=== PATIENT | male | born 1995 | race Caucasian/White ===

== ENCOUNTER 2020-03-29 10:50 | Emergency (ER) | payer OTHER, SELFPAY ==
[2020-03-29 10:54] VITALS: BP 140/81; PULSE 133; RESP 18; TEMP 36.6; O2SAT 98; BMI 24.4
--- NOTE | 2020-03-29 12:31 | ED_ITS ---
HPI - General Adult General Chief complaint: General Medical Stated complaint: hernia Time Seen by Provider: 03/29/20 12:31 Source: patient Mode of arrival: ambulatory Limitations: no limitations History of Present Illness HPI narrative: Tender area to the left upper thigh for the past several days. Onset (ago): day(s) Radiation: non-radiation Severity: mild Treatments prior to arrival: none Related Data Previous Rx's Medication Instructions Recorded cephalexin [Keflex] 500 mg PO Q8H 7 Days #21 cap 03/29/20 doxycycline monohydrate 100 mg PO BID 10 Days #20 cap 03/29/20 Allergies Allergy/AdvReac Type Severity Reaction Status Date / Time amoxicillin [AMOXICILLIN] Allergy Unknown HIVES Verified 03/29/20 10:51 Review of Systems Review of Systems: Constitutional: No Weight loss, No Fever, No Chills, No Night Sweats, No Fatigue, No Malaise ENT/Mouth: No Hearing loss, No Ear Pain, No Nasal Congestion, No Sinus Pain, No Hoarseness, No sore throat Eyes: No Eye Pain, No Swelling, No Redness, No Foreign Body, No Discharge, No Vision Changes Cardiovascular: No Chest Pain, No SOB, No Dyspnea on Exertion, No Orthopnea, No Edema, No Palpitations Respiratory: No Cough, No Sputum, No Wheezing, No Smoke Exposure, No Dyspnea Gastrointestinal: No Nausea, No Vomiting, No Diarrhea, No Constipation, No abdominal Pain, No Hematochezia, No Melena Genitourinary: No Dysuria Musculoskeletal: No joint pain, No Myalgias, No Joint Swelling Skin: No Skin Lesions, No rash, NOTED IN HPI Neuro: No Weakness, No Numbness, No Paresthesias, No Loss of Consciousness, No Dizziness, No Headache Psych: No Social Issues Heme/Lymph: No Bruising, No Bleeding,No Lymphadenopathy Endocrine: No Polyuria, No Polydipsia, No Temperature Intolerance Yes all other systems are reviewed and are negative [facility] Past Medical History Medical History (Updated 03/30/20 @ 00:00 by Background Daemon) Asthma Social History Social History Advance Directives: No Advance Directives Information Provided: Yes Physical Exam Vital Signs: Vital Signs: Last Vital Signs Temp 97.9 F 03/29/20 10:54 Pulse 133 H 03/29/20 10:54 Resp 18 03/29/20 10:54 BP 140/81 H 03/29/20 10:54 Pulse Ox 98 03/29/20 10:54 Body Mass Index 24.4 Reviewed Const: General: cooperative and healthy appearing; No acute distress or intoxicated appearing Nutritional Appearance: average body habitus Orientation/consciousness: patient oriented x3 Eyes: General: appearance normal, both eyes and all related structures Visual Kothari: normal visual kothari by confrontation Chest: Chest palpation & inspection: normal inspection of the chest Resp: Effort & Inspection: normal respiratory effort Cardio: Jugular venous distension: no JVD : General: Yes no CVA tenderness Back/Spine/Pelvis: Back: no CVA tenderness Skin: General skin exam: no rashes or lesions noted Full body images: 1. 3 cm annular area in the right upper thigh just distal to the groin area consistent with formed abscess that has formed head and already draining slightly. With slight massage/palpitation I was able to express about 5 mL of purulent discharge. Slight erythema to site and now flattened. Neuro: General: patient oriented x3 Extrem: General: Yes normal to inspection Course Course Course Narrative: Left thigh ingrown hair/abscess already draining has central opening. No need for I&D. Express purulent discharge manually. Will start on p.o. antibiotics for recheck in 2-3 days. Patient feels comfortable plan. Stable for discharge. Discharge Plan Discharge Clinical Impression: Abscess Patient Disposition: Home, Self-Care Instructions: Abscess (ED) Additional Instructions: Today your evaluate for the inflamed area in the right groin. This area is consistent with a ingrown hair that developed into an abscess. This abscess is already formed and started to drain has a opening already thus it does not require any surgical incision to drain. Continue do warm compresses Change dressing at least 3 times a day Take Tylenol/Motrin [id number] for pain discomfort Take her antibiotics as prescribed for the full course You can return here in 2 days for recheck Return sooner if any concerns or worsening symptoms Thank you Prescriptions: New doxycycline monohydrate 100 mg capsule 100 mg PO BID 10 Days Qty: 20 RF: 0 cephalexin [Keflex] 500 mg capsule 500 mg PO Q8H 7 Days Qty: 21 RF: 0 Referrals: Ja Landaverde, [facility] [employer] [facility] [Emergency Midlevel Provider] - 3 days (Wound check) Interventions: ED Discharge Assessment Last Done: 03/29/20 13:11 Discharge Date/Time: 03/29/20 13:11
== END 2020-03-29 13:11 | disposition home or self-care (01) ==
PROVIDERS: Emergency Provider Emergency Medicine; PCP Pediatrics
DX: L02.416 Cutaneous abscess of left lower limb (principal)
CPT/HCPCS: 99283